=== PATIENT | female | born 2000 | race Caucasian/White ===

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

== ENCOUNTER 2021-10-18 07:24 | Day surgery (SDC) | payer OTHER ==
[~2021-10-18] VITALS: Ht 162.6 cm; Wt 59.0 kg
[~2021-10-18 07:24] MED LIST changes: +NORCO 7.5-3251 EACH PO; +ULTRAM50 MG PO; +ZOFRAN ODT4 MG PO
[2021-10-18] MEDS ORDERED: CELECOXIB200 MG PO (10:41)
[2021-10-18] MEDS ORDERED: HYDROCODON-ACE1 EA10 PO (10:42)
--- NOTE | 2021-10-18 10:45 | NUR ---
10/18/21 Tanna5 Maria Isabel Dooley 1041- PT ARRIVED TO PACU NONAROUSABLE TO NOXIOUS STIMULI. RESP EVEN AND UNLABORED. OXYGEN SAT MID TO HIGH 90'S ON RA. ICE PACK APPLIED TO PT'S RIGHT HAND.
--- NOTE | 2021-10-18 12:00 | NUR ---
PT PROVIDED MEAL, ATE 75% OF HER MEAL.
--- NOTE | 2021-10-21 06:59 | OR ---
[facility] [address] [place], [place] [address] Signed DATE OF OPERATION: 10/18/2021 SURGEON: Mayco Abraham MD PREOPERATIVE DIAGNOSIS: Painful hardware, right 5th metacarpal. POSTOPERATIVE DIAGNOSIS: Painful hardware, right 5th metacarpal. PROCEDURE PERFORMED: Plate removal, right hand. LUMBER HACKER: None. ANESTHESIA: GETA. TOURNIQUET TIME: 26 minutes. BRIEF HISTORY: Sameera is a 21-year-old female, who suffered 5th metacarpal fracture fixed by Dr. Wood. She had healed uneventfully, however, she had pain and little bit of crepitance over the plate. Risks and benefits of operative treatment were discussed with her and she elected to proceed. DESCRIPTION OF PROCEDURE: Once consent was obtained, she was taken to the operating room. After adequate anesthesia, she was placed on operating room table. All downside pressure points were well padded. The arm was placed in a well-padded upper arm tourniquet. The arm was then prepped and draped in the standard sterile fashion exsanguinated using an Esmarch bandage. Tourniquet inflated to 200 mmHg. The prior incision was marked out and incised longitudinally. Careful dissection was taken down to the extensor tendons. They were carefully mobilized off the tendon. They were quite scarred down and tight. They were carefully mobilized off the plate and the six screws were cleaned of overlying soft tissue. All six screws were removed and the plate was elevated off the bone. The bone was then scraped up and the screw holes were scraped using a small curette. The wound was copiously irrigated with normal saline. The screw holes were filled with bone Electronically Signed By: MAYCO ABRAHAM MD 10/21/21 0659 PATIENT NAME: SAMEERA MELENDEZ OPERATIVE REPORT DATE OF : [birth year] REPORT #: [id number] PHYSICIAN: MAYCO ABRAHAM MD PCP: UNASSIGNED DOCTOR REPORT IS CONFIDENTIAL AND NOT TO BE RELEASED WITHOUT AUTHORIZATION [facility] [address] [place] [address] [place], [place] [address] Signed wax and the skin was closed using 3-0 Monocryl. The was then dressed with Steri- Strips, leave in dressing and gauze. She tolerated the procedure well. All sponge, needle, and instrument counts were correct. Mayco Abraham MD BA/MODL /[id number] Copies: ~ Electronically Signed By: MAYCO ABRAHAM MD 10/21/21 0659 PATIENT NAME: SAMEERA MELENDEZ OPERATIVE REPORT DATE OF : [birth year] REPORT #: [id number] PHYSICIAN: MAYCO ABRAHAM MD PCP: UNASSIGNED DOCTOR REPORT IS CONFIDENTIAL AND NOT TO BE RELEASED WITHOUT AUTHORIZATION
== END 2021-10-18 12:20 | disposition home or self-care (01) ==
LOC: DS 07:24
PROVIDERS: ATTEND Specialist
PROC: 0RPW0JZ Removal of Synthetic Substitute from Right Finger Phalangeal Joint, Open Approach (ICD-10-PCS; principal; 2021-10-18 10:30)
DX: T84.84XA Pain due to internal orthopedic prosthetic devices, implants and grafts, initial encounter (principal); G89.18 Other acute postprocedural pain; M77.9 Enthesopathy, unspecified; Y79.8 Miscellaneous orthopedic devices associated with adverse incidents, not elsewhere classified; Z87.891 Personal history of nicotine dependence
CPT/HCPCS: 64417; 76942; J0690; J1100; J2001; J2250; J2405; J2704; J2795; J7121